=== PATIENT | female | born 1995 | race African-American/Black ===

== ENCOUNTER 2016-08-09 16:05 | Emergency (ER) | payer BC ==
[2016-08-09 16:56] VITALS: BP 145/84
--- NOTE | 2016-08-09 18:05 | UC ---
Skin Complaint HPI - HPI Summary HPI Summary: Recently returned from hiking 1-2 days ago for a long time and noticed a group of itchy spots on L thigh. They have slight raised areas around them, pt is concerned about tick bites. Denies fever, aches, [place]. - History of Current Complaint Chief Complaint: [facility] Time Seen by Provider: 08/09/16 17:26 Stated Complaint: TICK BITE Hx Obtained From: Patient Hx Last Menstrual Period: 07/28/16 ?: No Onset/Duration: Gradual Onset, Lasting Days Skin Exposure Onset/Duration: Days Ago Timing: Constant Onset Severity: Mild Current Severity: Mild Location: Discrete Character: Pruritus, Redness, Raised Aggravating: Touch Associated Signs & Symptoms: Positive: Rash Related History: Insect Bite/Sting - Allergy/Home Medications Allergies/Adverse Reactions: Allergies Allergy/AdvReac Type Severity Reaction Status Date / Time Bacitracin [From Neosporin] Allergy Rash And Verified 07/15/15 16:00 Itching Neomycin [From Neosporin] Allergy Rash And Verified 07/15/15 16:00 Itching Polymyxin B [From Neosporin] Allergy Rash And Verified 07/15/15 16:00 Itching Home Medications: Home Medications Modafinil TAB* [Provigil TAB*] 200 mg PO DAILY 08/09/16 [History Confirmed 08/09] Review of Systems Constitutional: Negative Skin: Rash - L upper outer thigh Eyes: Negative ENT: Negative Respiratory: Negative Cardiovascular: Negative Gastrointestinal: Negative Genitourinary: Negative Motor: Negative Neurovascular: Negative Musculoskeletal: Negative Neurological: Negative Psychological: Negative All Other Systems Reviewed And Are Negative: Yes PMH/Surg Hx/FS Hx/Imm Hx Previously Healthy: Yes - Surgical History Surgical History: Yes Surgery Procedure, Year, and Place: acl repair - Family History Known Family History: Negative: Blood Disorder - Social History Lives: Alone Alcohol Use: Occasionally Substance Use Type: None Substance Use Comment - Amount & Last Used: last last night Smoking Status (MU): Never Smoked Tobacco Physical Exam Triage Information Reviewed: Yes Appearance: Well-Appearing, No Pain Distress, Well-Nourished Vital Signs: Initial Vital Signs Temp 99.2 F 08/09/16 16:51 Pulse 68 08/09/16 16:51 Resp 18 08/09/16 16:51 BP 145/84 08/09/16 16:51 Pulse Ox 100 08/09/16 16:51 Vital Signs Reviewed: Yes Eye Exam: Normal Eyes: Positive: Conjunctiva Clear ENT Exam: Normal ENT: Positive: Normal ENT inspection, Hearing grossly normal, Pharynx normal, TMs normal Dental Exam: Normal Neck exam: Normal Neck: Positive: Supple, Nontender, No Lymphadenopathy Respiratory Exam: Normal Respiratory: Positive: Chest non-tender, Lungs clear, Normal breath sounds, No respiratory distress, No accessory muscle use Cardiovascular Exam: Normal Cardiovascular: Positive: RRR, No Murmur Musculoskeletal Exam: Normal Neurological Exam: Normal Neurological: Positive: Alert Psychological Exam: Normal Skin Exam: Other - 4 raised separate bumps L upper thigh consistent with insect bites. Not typical of tick bites. Course/Dx - Diagnoses Provider Diagnoses: insect bites L thigh. elevated blood pressure due to discomfort Discharge - Discharge Plan Condition: Stable Disposition: HOME Patient Education Materials: Insect Bite or Sting (ED) Referrals: No Primary Care Phys,NOPCP [Primary Care Provider] - Additional Instructions: There is no reason for concern about tick-born illness or other worrisome insect bites from your exam. Please call or return if you have increasing pain or spreading redness.
== END 2016-08-09 18:26 | disposition home or self-care (01) ==
LOC: UCEAST 16:05
DX: S70.362A Insect bite (nonvenomous), left thigh, initial encounter (principal); W57.XXXA Bitten or stung by nonvenomous insect and other nonvenomous arthropods, initial encounter; Y93.9 Activity, unspecified; Y92.9 Unspecified place or not applicable; R03.0 Elevated blood-pressure reading, without diagnosis of hypertension
CPT/HCPCS: 99211; G0463